=== PATIENT | male | born 1955 | race Caucasian/White ===

== ENCOUNTER 2017-01-24 08:41 | Emergency (ER) | payer OTHER ==
[~2017-01-24] VITALS: Ht 172.7 cm; Wt 67.4 kg
[~2017-01-24 08:41] MED LIST: EPP3/2 IM; [UNRECOGNIZED DRUG - CODE] PO
[2017-01-24 08:43] VITALS: TEMP 36.9; Ht 172.7 cm; Wt 67.4 kg
--- NOTE | 2017-01-24 08:59 | EMERGENCY ROOM VISIT NOTE ---
History Report prepared by Kimber: Ricardo Ayon Under the Supervision of: Dr. Jacky Jaimes M.D. First contact with patient: 08:49 Chief Complaint: ABDOMINAL PAIN Stated Complaint: STOMACH PAIN History of Present Illness The patient is a 61 year old male who presents to the Emergency Room with complaints of worsening abdominal pain beginning three months ago. The patient states he has not been eating right. abdominal - 3 months ago hasnt been eating right Review of Systems See HPI for pertinent positives & negatives. A total of 10 systems reviewed and were otherwise negative. Past Medical & Surgical Medical Problems: (1) HTN (hypertension) Family History Cancer Social History Smoking Status: Current Every Day Smoker Alcohol Use: occasionally Marital Status: single Housing Status: lives alone Occupation Status: employed Current/Historical Medications Scheduled Atenolol (Tenormin), 50 MG PO QAM Epinephrine (Epipen), 0.3 MG IM UD Losartan Potassium (Losartan Potassium), 50 MG PO DAILY Allergies Coded Allergies: No Known Allergies (Unverified , 01/24/17) Physical Exam Vital Signs Date Time Temp Pulse Resp B/P (MAP) Pulse Ox O2 Delivery O2 Flow Rate FiO2 01/24/17 08:43 36.9 104 17 132/94 97 Room Air Medical Decision & Procedures Laboratory Results 01/24/17 09:29 Red Blood Count 4.89, Mean Corpuscular Volume 95.9, Mean Corpuscular Hemoglobin 33.9, Mean Corpuscular Hemoglobin Concent 35.4, Mean Platelet Volume 10.3, Neutrophils (%) (Auto) 73.4, Lymphocytes (%) (Auto) 16.5, Monocytes (%) (Auto) 8.9, Eosinophils (%) (Auto) 0.3, Basophils (%) (Auto) 0.7, Neutrophils # (Auto) 4.37, Lymphocytes # (Auto) 0.98, Monocytes # (Auto) 0.53, Eosinophils # (Auto) 0.02, Basophils # (Auto) 0.04 Test 01/24/17 09:29 White Blood Count 5.95 K/uL (4.8-10.8) Red Blood Count 4.89 M/uL (4.7-6.1) Hemoglobin 16.6 g/dL (14.0-18.0) Hematocrit 46.9 % (42-52) Mean Corpuscular Volume 95.9 fL (80-100) Mean Corpuscular Hemoglobin 33.9 pg (25-34) Mean Corpuscular Hemoglobin Concent 35.4 g/dl (32-36) Platelet Count 230 K/uL (130-400) Mean Platelet Volume 10.3 fL (7.4-10.4) Neutrophils (%) (Auto) 73.4 % Lymphocytes (%) (Auto) 16.5 % Monocytes (%) (Auto) 8.9 % Eosinophils (%) (Auto) 0.3 % Basophils (%) (Auto) 0.7 % Neutrophils # (Auto) 4.37 K/uL (1.4-6.5) Lymphocytes # (Auto) 0.98 K/uL (1.2-3.4) Monocytes # (Auto) 0.53 K/uL (0.11-0.59) Eosinophils # (Auto) 0.02 K/uL (0-0.5) Basophils # (Auto) 0.04 K/uL (0-0.2) RDW Standard Deviation 47.2 fL (36.4-46.3) RDW Coefficient of Variation 13.4 % (11.5-14.5) Immature Granulocyte % (Auto) 0.2 % Immature Granulocyte # (Auto) 0.01 K/uL (0.00-0.02) Urine Color DK YELLOW Urine Appearance CLOUDY (CLEAR) Urine pH 5.5 (4.5-7.5) Urine Specific [place] 1.023 (1.000-1.030) Urine Protein NEG (NEG) Urine Glucose (UA) NEG (NEG) Urine Ketones TRACE (NEG) Urine Occult Blood NEG (NEG) Urine Nitrite NEG (NEG) Urine Bilirubin NEG (NEG) Urine Urobilinogen NEG (NEG) Urine Leukocyte Esterase NEG (NEG) Urine WBC (Auto) 1-5 /hpf (0-5) Urine RBC (Auto) 0-4 /hpf (0-4) Urine Hyaline Casts (Auto) 1-5 /lpf (0-5) Urine Epithelial Cells (Auto) 5-10 /lpf (0-5) Urine Bacteria (Auto) NEG (NEG) Departure Information Referrals Stephanie Portillo PA-C (PCP) Patient Instructions My [facility]
[2017-01-24 09:43] LABS: BASO % 0.7 %; BASO ABS # 0.04 K/uL (0-0.2); COMPLETE YES; EOS % 0.3 %; HEMATOCRIT 46.9 % (42-52); IG% 0.2 %; LYMPH % 16.5 %; LYMPH ABS # 0.98 K/uL (1.2-3.4); MEAN CELL VOLUME 95.9 fL (80-100); MEAN CORPUSCULAR HEMOGLOBIN 33.9 pg (25-34); MEAN CORPUSCULAR HGB CONC 35.4 g/dl (32-36); MEAN PLATELET VOLUME 10.3 fL (7.4-10.4); MONO % 8.9 %; NEUT % 73.4 %; PLATELET COUNT 230 K/uL (130-400); RED BLOOD COUNT 4.89 M/uL (4.7-6.1); URINE APPEARANCE CLOUDY (CLEAR); URINE BILIRUBIN NEG (NEG); URINE COLOR DK YELLOW; URINE NITRITE NEG (NEG); URINE PH 5.5 (4.5-7.5); URINE SPECIFIC GRAVITY 1.023 (1.000-1.030); UROBILINOGEN NEG (NEG); WHITE BLOOD COUNT 5.95 K/uL (4.8-10.8); ZZUR CULT IF INDIC CLEAN CATCH NO
[2017-01-24 09:45] LABS: MANUAL MICROSCOPIC REQUIRED? NO; REVIEW REQ? NO
[2017-01-24] MEDS ORDERED: ATEN50TA8 PO (09:47)
[2017-01-24] MEDS ORDERED: CZR50 PO (09:47)
[2017-01-24] MEDS ORDERED: OPTIRAY 320 IV PRN (10:00)
--- NOTE | 2017-01-24 10:02 | DIAGNOSTIC IMAGING REPORT ---
TWO VIEW CHEST CLINICAL HISTORY: Cough. FINDINGS: PA and lateral chest radiographs are obtained. No prior studies are available for comparison at the time of dictation. The cardiomediastinal silhouette is unremarkable. The lungs and pleural spaces are clear. There is no pneumothorax. The bony thorax appears intact. IMPRESSION: No active disease in the chest. Electronically signed by: Brendan Mi M.D. 01/24/2017 10:01 AM Dictated Date/Time: 01/24/2017 10:00 AM
[2017-01-24 10:09] LABS: ALB/GLOB RATIO 0.8 (0.9-2); BUN/CREATININE RATIO 10.2 (10-20); CALCIUM 8.6 mg/dl (8.5-10.1); CREATININE 0.94 mg/dl (0.60-1.40); POTASSIUM 3.7 mmol/L (3.5-5.1)
[2017-01-24 10:30] LABS: THYROID STIMULATING HORMONE 0.877 uIu/ml (0.300-4.500)
[2017-01-24 10:34] LABS: LYME DISEASE AB IGG NEG (NEG); LYME DISEASE AB IGM NEG (NEG)
--- NOTE | 2017-01-24 12:47 | DIAGNOSTIC IMAGING REPORT ---
ABD/PELVIS IV AND ORAL CONT CT DOSE: 290.91 mGy.cm HISTORY: Pain eval hernia, IBD, mass TECHNIQUE: Multiaxial CT images of the abdomen and pelvis were performed following the use of intravenous and oral contrast. A dose lowering technique was utilized adhering to the principles of ALARA. COMPARISON STUDY: None. FINDINGS: Lung bases are clear. Liver is diffusely heterogeneous consistent with fatty infiltration and regional degeneration. Gallbladder is negative for distention. Right kidney is negative for hydronephrosis. It enhances uniformly. The left kidney demonstrates a 2.2 cm upper pole renal cyst. Is also negative for hydronephrosis. Bowel pattern is considered nonobstructive. There is no evidence for an anterior abdominal wall hernia. There are small fat-containing bilateral inguinal hernias. There is no evidence for an obstructive pattern. Bladder is midline. There is no free fluid within the pelvic cul-de-sac. There is no significant abdominal pelvic or inguinal adenopathy. IMPRESSION: 1. Diffuse fatty infiltration of liver 2. 2.2 cm upper pole left renal cyst. 3. Nonobstructive bowel pattern. 4. Small fat-containing bilateral inguinal hernias. No evidence of bowel containment or obstructive change. The above report was generated using voice recognition software. It may contain grammatical, syntax or spelling errors. Electronically signed by: Shar Duran M.D. 01/24/2017 12:46 PM Dictated Date/Time: 01/24/2017 12:38 PM
--- NOTE | 2017-01-24 15:22 | EMERGENCY ROOM VISIT NOTE ---
History First contact with patient: 09:10 Chief Complaint: ABDOMINAL PAIN Stated Complaint: STOMACH PAIN Nursing Triage Summary: Pt c/o mid lower abd pain since October. Initially the pain was intermittent but for the last month it has been more constant. Pt denies n/v/d History of Present Illness The patient is a 61 year old male who presents to the Emergency Room with complaints of generalized abdominal pain for the past 4-5 months. He states that the pain was initially intermittent but for the past several weeks and has become more constant. Nothing seems to make it better or worse. He rates the pain as 4/10. Pain is not made worse or better by eating and drinking. He does note for the past few months he has had frequent loose stools, though he denies any watery diarrhea. He denies any nausea, vomiting, constipation, blood in the stool, urinary symptoms, rash, chest pain,shortness of breath, dizziness or passing out, fevers or chills. He has not seen his primary care provider for this pain at all, he notes that he had a routine checkup 6 months ago and thought everything was fine, but has not been back to see his PCP since his pain started. He states the reason he is here today is because one of his family members "forced me to come here and get checked." Review of Systems A complete 10 point review of systems was reviewed with the patient with pertinent positives and negatives as per history of present illness. All else were negative. Past Medical/Surgical History Medical Problems: (1) HTN (hypertension) Family History Cancer Social History Smoking Status: Current Every Day Smoker Alcohol Use: occasionally Marital Status: single Housing Status: lives alone Occupation Status: employed Current/Historical Medications Scheduled Atenolol (Tenormin), 50 MG PO QAM Epinephrine (Epipen), 0.3 MG IM UD Losartan Potassium (Losartan Potassium), 50 MG PO DAILY Allergies Coded Allergies: No Known Allergies (Unverified , 01/24/17) Physical Exam Vital Signs Date Time Temp Pulse Resp B/P (MAP) Pulse Ox O2 Delivery O2 Flow Rate FiO2 01/24/17 16:10 86 18 128/79 96 01/24/17 15:07 84 16 125/88 94 Room Air 01/24/17 13:01 82 14 140/92 94 Room Air 01/24/17 12:08 85 14 126/90 97 Room Air 01/24/17 11:16 88 16 124/81 99 Room Air 01/24/17 08:43 36.9 104 17 132/94 97 Room Air Physical Exam CONSTITUTIONAL: No acute distress. Mildly dehydrated. Well appearing and well nourished. Alert and oriented X 4 with normal affect. HEENT: Normocephalic, atraumatic. Pupils equal, round and reactive to light, EOMI. TMs normal. Pharynx normal. Tacky mucous membranes. NECK: Supple, full active range of motion without discomfort. RESPIRATORY: Clear to auscultation bilaterally with no wheezing, crackles, rhonchi or stridor. Equal expansion bilaterally. CARDIOVASCULAR: Regular rate and rhythm with no murmurs, rubs or gallops. Normal peripheral perfusion. No edema. GASTROINTESTINAL: Mildly tender throughout the lower abdomen and periumbilical region. No rebound tenderness or guarding. Soft and nondistended. No hepatosplenomegaly. Bowel sounds present in all quadrants. MUSCULOSKELETAL: Full range of motion of all joints without discomfort. INTEGUMENTARY: No rash or other significant dermatologic conditions noted. NEUROLOGIC: Cranial nerves II-XII grossly intact. No focal neurologic deficits noted. No tremors noted. Normal strength and sensation, normal gait, normal speech, normal coordination. Medical Decision & Procedures ER Provider Diagnostic Interpretation: TWO VIEW CHEST CLINICAL HISTORY: Cough. FINDINGS: PA and lateral chest radiographs are obtained. No prior studies are available for comparison at the time of dictation. The cardiomediastinal silhouette is unremarkable. The lungs and pleural spaces are clear. There is no pneumothorax. The bony thorax appears intact. IMPRESSION: No active disease in the chest. ----- ABD/PELVIS IV AND ORAL CONT CT DOSE: 290.91 mGy.cm HISTORY: Pain eval hernia, IBD, mass TECHNIQUE: Multiaxial CT images of the abdomen and pelvis were performed following the use of intravenous and oral contrast. A dose lowering technique was utilized adhering to the principles of ALARA. COMPARISON STUDY: None. FINDINGS: Lung bases are clear. Liver is diffusely heterogeneous consistent with fatty infiltration and regional degeneration. Gallbladder is negative for distention. Right kidney is negative for hydronephrosis. It enhances uniformly. The left kidney demonstrates a 2.2 cm upper pole renal cyst. Is also negative for hydronephrosis. Bowel pattern is considered nonobstructive. There is no evidence for an anterior abdominal wall hernia. There are small fat-containing bilateral inguinal hernias. There is no evidence for an obstructive pattern. Bladder is midline. There is no free fluid within the pelvic cul-de-sac. There is no significant abdominal pelvic or inguinal adenopathy. IMPRESSION: 1. Diffuse fatty infiltration of liver 2. 2.2 cm upper pole left renal cyst. 3. Nonobstructive bowel pattern. 4. Small fat-containing bilateral inguinal hernias. No evidence of bowel containment or obstructive change. Laboratory Results 01/24/17 09:29 Red Blood Count 4.89, Mean Corpuscular Volume 95.9, Mean Corpuscular Hemoglobin 33.9, Mean Corpuscular Hemoglobin Concent 35.4, Mean Platelet Volume 10.3, Neutrophils (%) (Auto) 73.4, Lymphocytes (%) (Auto) 16.5, Monocytes (%) (Auto) 8.9, Eosinophils (%) (Auto) 0.3, Basophils (%) (Auto) 0.7, Neutrophils # (Auto) 4.37, Lymphocytes # (Auto) 0.98, Monocytes # (Auto) 0.53, Eosinophils # (Auto) 0.02, Basophils # (Auto) 0.04 01/24/17 09:29 Test 01/24/17 09:29 01/24/17 11:50 White Blood Count 5.95 K/uL (4.8-10.8) Red Blood Count 4.89 M/uL (4.7-6.1) Hemoglobin 16.6 g/dL (14.0-18.0) Hematocrit 46.9 % (42-52) Mean Corpuscular Volume 95.9 fL (80-100) Mean Corpuscular Hemoglobin 33.9 pg (25-34) Mean Corpuscular Hemoglobin Concent 35.4 g/dl (32-36) Platelet Count 230 K/uL (130-400) Mean Platelet Volume 10.3 fL (7.4-10.4) Neutrophils (%) (Auto) 73.4 % Lymphocytes (%) (Auto) 16.5 % Monocytes (%) (Auto) 8.9 % Eosinophils (%) (Auto) 0.3 % Basophils (%) (Auto) 0.7 % Neutrophils # (Auto) 4.37 K/uL (1.4-6.5) Lymphocytes # (Auto) 0.98 K/uL (1.2-3.4) Monocytes # (Auto) 0.53 K/uL (0.11-0.59) Eosinophils # (Auto) 0.02 K/uL (0-0.5) Basophils # (Auto) 0.04 K/uL (0-0.2) RDW Standard Deviation 47.2 fL (36.4-46.3) RDW Coefficient of Variation 13.4 % (11.5-14.5) Immature Granulocyte % (Auto) 0.2 % Immature Granulocyte # (Auto) 0.01 K/uL (0.00-0.02) Urine Color DK YELLOW Urine Appearance CLOUDY (CLEAR) Urine pH 5.5 (4.5-7.5) Urine Specific [place] 1.023 (1.000-1.030) Urine Protein NEG (NEG) Urine Glucose (UA) NEG (NEG) Urine Ketones TRACE (NEG) Urine Occult Blood NEG (NEG) Urine Nitrite NEG (NEG) Urine Bilirubin NEG (NEG) Urine Urobilinogen NEG (NEG) Urine Leukocyte Esterase NEG (NEG) Urine WBC (Auto) 1-5 /hpf (0-5) Urine RBC (Auto) 0-4 /hpf (0-4) Urine Hyaline Casts (Auto) 1-5 /lpf (0-5) Urine Epithelial Cells (Auto) 5-10 /lpf (0-5) Urine Bacteria (Auto) NEG (NEG) Anion Gap 10.0 mmol/L (3-11) Est Creatinine Clear Calc Drug Dose 77.7 ml/min Estimated GFR () 100.3 Estimated GFR (Non- 86.5 BUN/Creatinine Ratio 10.2 (10-20) Calcium Level 8.6 mg/dl (8.5-10.1) Total Bilirubin 0.6 mg/dl (0.2-1) Aspartate Amino Transf (AST/SGOT) 422 U/L (15-37) Alanine Aminotransferase (ALT/SGPT) 187 U/L (12-78) Alkaline Phosphatase 123 U/L (45-117) Total Protein 7.0 gm/dl (6.4-8.2) Albumin 3.0 gm/dl (3.4-5.0) Globulin 4.0 gm/dl (2.5-4.0) Albumin/Globulin Ratio 0.8 (0.9-2) Lipase 230 U/L (73-393) Thyroid Stimulating Hormone (TSH) 0.877 uIu/ml (0.300-4.500) Chemistry Specimen Hemolysis Lyme Disease IgG Antibody NEG (NEG) Lyme Disease IgM Antibody NEG (NEG) Ferritin 2630.3 ng/ml (8.0-388.0) Hepatitis C Antibody NEG (NEG) Medical Decision CC: Patient presenting with complaint of abdominal pain Interpretation of Labs: No leukocytosis, no anemia, no significant loculated abnormality, normal renal function, diffusely elevated liver enzymes with normal lipase. UA negative. Differential Diagnosis: Includes, but not limited to abdominal wall hernia, inflammatory bowel disease, colitis, gastroenteritis, abdominal mass, cirrhosis , hepatitis, diverticulitis, dehydration, electrolyte abnormality UTI, DKA, among others. Medication Reconciliation: I attest that I have personally reviewed the patient' s current medication list. Vital signs review: I reviewed the patient's vital signs and interpret them as follows: T: Afebrile; BP: Hypertensive; HR: Mildly tachycardic; RR: Within normal limits; Pulse Ox: Within normal limits on room air. Blood pressure screening: The patient was found to have an elevated blood pressure and was referred to their primary doctor for recheck and further treatment. Summary: Patient was evaluated at bedside, history and physical exam performed. Patient is alert and oriented, no acute distress, resting calmly in the stretcher. Patient complains of mild tenderness in the periumbilical and lower abdomen, no rebound or guarding, no hepatosplenomegaly, no palpable masses or hernias. Patient does appear mildly dehydrated. Patient admits to smoking 1-1/2 packs per day and drinking 6-8 beers daily. He states that he drinks everyday, but denies history of withdrawals or seizures. Orders were placed at bedside for labs, UA, IV fluids for hydration, chest x- ray to evaluate for cardiopulmonary disease, CT abdomen and pelvis with IV and oral contrast to evaluate for abdominal mass, inflammatory bowel disease, among others. Patient was voicing concern for Lyme disease, therefore Lyme testing was ordered. This is negative today. Patient discussed with Dr. Jaimes, who agrees with my assessment and plan. Labs reviewed as above, notable for elevated liver enzymes, no other significant abnormalities. Hepatitis panel sent and pending. Chest x-ray reviewed, no acute abnormality is. CT imaging reviewed, no significant abnormalities noted. Patient reassessed multiple times throughout ED stay, she remains well appearing , with no significant complaints and states his pain has stayed about the same. He continues to decline anything for pain. Patient was updated on all results, particularly his elevated liver enzymes. He was encouraged to decrease his alcohol consumption with the goal of stopping alcohol. He was also instructed to avoid any Tylenol containing products. Patient was encouraged to follow closely with his primary care provider and was also provided with referral information for residential green building designer for follow-up. Patient was also given strict return precautions should his symptoms worsen in any way, he verbalized understanding. Patient was discharged home in stable condition and ambulatory. Impression Primary Impression: Abdominal pain Additional Impression: Elevated liver enzymes Departure Information Dispostion Home / Self-Care Condition GOOD Referrals Stephanie Portillo PA-C (PCP) Errol Elaine MD Patient Instructions ED Abdominal Pain Unkn Cause Male, ED Cirrhosis Liver, My [facility] Additional Instructions You have been treated in the Emergency Department your Abdominal Pain. Laboratory results and imaging studies have ruled out any emergent causes for your abdominal pain which would warrant admission or surgery. Laboratory results did show some elevation in your liver function testing. This may be because of your daily alcohol consumption. You should try to cut back or stop drinking as much as possible. You should also avoid any medications with Tylenol or acetaminophen in them, as this can worsen your liver disease. You should follow-up with a residential green building designer regarding her abdominal pain and elevated liver tests. You have been provided with contact information for Dr. Elaine, please call his office to set up an appointment. Drink plenty of fluids to stay well hydrated. As with any trip to the Emergency Department, you should also follow-up with your Primary Care Provider from today's visit. Return to the emergency department if your symptoms get worse, including severe abdominal pain, persistent nausea or vomiting, vomiting blood or bile, itching or yellow skin, yellowing of the eyes, confusion, tremors or seizures, fever/ chills/feeling ill, blood in your stool or urine, or any other concerns. Problem Qualifiers Primary Impression: Abdominal pain Abdominal location: generalized Qualified Codes: R10.84 - Generalized abdominal pain
[2017-01-24 16:10] VITALS: BP 128/79; PULSE 86; O2SAT 96
== END 2017-01-24 16:05 | disposition home or self-care (01) ==
LOC: C.EDB 08:42 → C.EDA 16:05
DX: R10.84 Generalized abdominal pain (principal); R74.8 Abnormal levels of other serum enzymes; I10 Essential (primary) hypertension; Z80.9 Family history of malignant neoplasm, unspecified; F17.210 Nicotine dependence, cigarettes, uncomplicated